=== PATIENT | male | born 1955 | race Two or more races ===

== ENCOUNTER 2025-04-19 08:30 | Inpatient (IN) | payer OTHER ==
[~2025-04-19] VITALS: Ht 152.4 cm; Wt 70.3 kg
[2025-04-19] MEDS ORDERED: FARXIGA5 MG PO (09:08)
[2025-04-19] MEDS ORDERED: GRALISE600 MG (09:08)
[2025-04-19] MEDS ORDERED: OMEGA 3 1,0001 EACH PO (09:09)
[2025-04-19] MEDS ORDERED: ATORVASTATIN CA10 MG PO (09:09)
[2025-04-19] MEDS ORDERED: COZAAR100 MG PO (09:09)
[2025-04-19] MEDS ORDERED: AMLODIPINE-OLM1 EAC2 PO (09:10)
[2025-04-19 09:15] VITALS: BP 154/88
[2025-04-19 10:02] LABS: URINE APPEARANCE Clear; URINE BILIRRUBIN Negative (NEGATIVE); URINE BLOOD Negative; URINE COLOR Yellow; URINE KETONE Negative (NEGATIVE); URINE LEUKOCYTE Negative; URINE NITRATE Negative; URINE PROTEIN Negative (NEGATIVE); URINE UROBILINOGEN 0.2 E.U./dl
[2025-04-19 10:03] LABS: URINE RBC 4.8 uL (0.0-20.8); URINE WBC 2.7 uL (0.0-23.2)
[2025-04-19 10:06] LABS: BASO % 1.0 % (0.1-1.2); EOS # 0.14 (0.04-0.54); EOS % 1.9 % (0.7-7.0); LYMPH # 1.88 (1.18-3.74); LYMPH % 26.0 % (19.3-53.1); MEAN PLATELET VOLUME 9.40 fl (9.4-12.4); MONO # 0.84 (0.24-0.82); MONO % 11.6 % (4.7-12.5); NEUT # 4.27 (1.56-6.13); NEUT % 59.2 % (34.0-71.1); RED CELL DISTRIBUTION WIDTH 15.5 % (11.6-14.4)
[2025-04-19 10:07] LABS: URINE BACTERIA 1.2 uL (0.0-1933); URINE CAST 0.29 uL (0.0-1.40); URINE EPITHELIAL CELLS 1.0 uL (0.0-38.8); URINE GLUCOSE >=1000 MG/DL (NEGATIVE)
[2025-04-19 10:19] LABS: COVID-19 AG NEGATIVE (NEGATIVE)
[2025-04-19 10:30] LABS: INR < 0.93
[2025-04-19 10:41] LABS: BUN CREA RATIO 20.0 (7.0-25.0); CREATININE SERUM 1.33 mg/dL (0.70-1.30); GFR 53.63; GLUCOSE FASTING 104.0 mg/dL (65-100); OSMOLALITY SERUM 286.0 MOSM/KG (275-295)
[2025-05-08] MEDS ORDERED: CEFAZOLIN SODIUM 1,000 MG VIAL ONE (09:58)
[2025-05-08] MEDS ORDERED: ENOXAPARIN SODIUM 40 MG/0.4 ML SYRINGE SUBCUTANEO ONE ×2 (09:58→12:45)
[2025-05-08] MEDS ORDERED: SUGAMMADEX SODIUM 200 MG/2 ML VIAL IV ONE (10:42)
[2025-05-08] MEDS ORDERED: HEMOSTATIC MATRIX 1 KIT KIT TOP ONE ×2 (10:42→12:45)
[2025-05-08] MEDS ORDERED: BUPIVACAINE HCL/MPF 0.5% 30ML VIAL ONE (10:42)
[2025-05-08] MEDS ORDERED: SURGIFLO APPLICATOR 1 EACH APPL TOP ONE ×2 (10:42→12:45)
[2025-05-08] MEDS ORDERED: CEFAZOLIN SODIUM 1,000 MG VIAL IV ONE (12:45)
[2025-05-08] MEDS ORDERED: BUPIVACAINE HCL 30 ML VIAL IJ ONE (12:45)
[2025-05-08] MEDS ORDERED: hydrALAZINE HCL 20 MG VIAL ONE (13:15)
[2025-05-08] MEDS ORDERED: DEXTROSE 50 % IN WATER 0.5 G/ML DISP.SYRIN IV PRN (15:45)
[2025-05-08] MEDS ORDERED: ONDANSETRON HCL 2 MG/ML VIAL IV PRN (15:45)
[2025-05-08] MEDS ORDERED: RINGERS SOLUTION,LACTATED 1,000 ML IV SCH (15:45)
[2025-05-08] MEDS ORDERED: MORPHINE SULFATE 4 MG/ML CARTRIDGE IV PRN (15:45)
[2025-05-08] MEDS ORDERED: OxyCODONE HCL 5 MG TABLET (ROXICODONE) PO PRN (15:45)
[2025-05-08] MEDS ORDERED: INSULIN LISPRO 1,000 UNIT/10 ML UNITS SUBCUTANEO PRN (15:45)
[2025-05-08] MEDS ORDERED: GABAPENTIN 300 MG CAPSULE PO SCH (17:00)
[2025-05-08 20:24] LABS: BASO % 0.2 % (0.1-1.2); EOS # 0.01 (0.04-0.54); EOS % 0.1 % (0.7-7.0); LYMPH # 0.73 (1.18-3.74); LYMPH % 5.0 % (19.3-53.1); MEAN PLATELET VOLUME 9.70 fl (9.4-12.4); MONO # 1.05 (0.24-0.82); MONO % 7.2 % (4.7-12.5); NEUT # 12.78 (1.56-6.13); NEUT % 87.2 % (34.0-71.1); RED CELL DISTRIBUTION WIDTH 15.2 % (11.6-14.4)
[2025-05-08 20:45] VITALS: BP 149/75; O2SAT 98
[2025-05-08 20:50] VITALS: BP 130/76; O2SAT 91
[2025-05-08] MEDS ORDERED: DOCUSATE SODIUM 100MG CAP PO SCH (21:00)
[2025-05-08] MEDS ORDERED: FAMOTIDINE/PF 20 MG/2 ML VIAL IV SCH (21:00)
[2025-05-08] MEDS ORDERED: CEFAZOLIN SODIUM 1,000 MG VIAL IV SCH (21:00)
[2025-05-08 21:08] LABS: BUN CREA RATIO 19.0 (7.0-25.0); CREATININE SERUM 1.16 mg/dL (0.70-1.30); GFR 62.8; GLUCOSE FASTING 92.0 mg/dL (65-100); OSMOLALITY SERUM 282.0 MOSM/KG (275-295)
[2025-05-09 00:16] VITALS: BP 122/72; O2SAT 96
[2025-05-09 06:59] LABS: BASO % 0.5 % (0.1-1.2); EOS # 0.03 (0.04-0.54); EOS % 0.3 % (0.7-7.0); LYMPH # 1.18 (1.18-3.74); LYMPH % 10.9 % (19.3-53.1); MEAN PLATELET VOLUME 10.30 fl (9.4-12.4); MONO # 0.98 (0.24-0.82); MONO % 9.0 % (4.7-12.5); NEUT # 8.57 (1.56-6.13); NEUT % 79.0 % (34.0-71.1); RED CELL DISTRIBUTION WIDTH 15.4 % (11.6-14.4)
[2025-05-09 07:19] LABS: BUN CREA RATIO 16.0 (7.0-25.0); CREATININE SERUM 1.26 mg/dL (0.70-1.30); GFR 57.08; GLUCOSE FASTING 89.0 mg/dL (65-100); OSMOLALITY SERUM 278.0 MOSM/KG (275-295)
[2025-05-09 08:00] VITALS: BP 146/79; O2SAT 95
[2025-05-09] MEDS ORDERED: LOSARTAN POTASSIUM 100 MG TABLET PO SCH (09:00)
[2025-05-09] MEDS ORDERED: ENOXAPARIN SODIUM 40 MG/0.4 ML SYRINGE SUBCUTANEO SCH (09:00)
[2025-05-09] MEDS ORDERED: LIDOCAINE 1 EACH ADH..PATCH TOP STA (13:44)
== END 2025-05-09 15:15 | disposition home or self-care (01) | DRG 708 ==
LOC: SURH 05-08 08:30 → SURG 05-08 09:00 → O/R 05-08 09:00 → SURH 05-08 09:00 → SURG 05-08 16:40
PROVIDERS: ADMIT Urology; ATTEND Urology
PROC: 8E0W4CZ Robotic Assisted Procedure of Trunk Region, Percutaneous Endoscopic Approach (ICD-10-PCS; 2025-05-08)
PROC: 0VT04ZZ Resection of Prostate, Percutaneous Endoscopic Approach (ICD-10-PCS; principal; 2025-05-08 09:00)
DX: C61 Malignant neoplasm of prostate (principal)
CPT/HCPCS: 55866; S2900